=== PATIENT | female | born 1945 | race Caucasian/White ===

== ENCOUNTER 2018-05-09 11:02 | Emergency (ER) | payer MEDICARE, BC ==
--- NOTE | 2018-05-09 11:05 | UC ---
Abdominal Pain Female HPI - HPI Summary HPI Summary: 73 yo female presents with severe abdominal pain. She tells me that 5 days ago she had an episode of loose stools and mild abdominal cramping. The next day her pain was more generalized and she did not have a BM. Since that time her pain has increased to severe 10/10 and she has not had a bowel movement in 4 days. She is also nauseous and has not eaten anything today because she feels that she will vomit. She has not taken anything OTC. Denies fever, chills, recent illness, SOB, chest pain, dysuria, hematuria, vaginal bleeding/discharge. - History of Current Complaint Stated Complaint: ABDOMINAL PAIN Time Seen by Provider: 05/09/18 11:05 Hx Obtained From: Patient Severity Initially: Moderate Severity Currently: Severe Pain Intensity: 10 Pain Scale Used: 0-10 Numeric Location: Diffuse Allergies/Adverse Reactions: Allergies Allergy/AdvReac Type Severity Reaction Status Date / Time levofloxacin [From Levaquin] Allergy Unknown Rash Verified 05/09/18 11:07 MS Penicillins [Penicillins] Allergy Rash Verified 05/09/18 11:07 MS Sulfa Antibiotics Allergy Rash Verified 05/09/18 11:07 [Sulfa Antibiotics] PMH/Surg Hx/FS Hx/Imm Hx Endocrine History: Dyslipidemia Cardiovascular History: Cardiac Disease, Hypertension, Atrial Fibrillation - Surgical History Surgical History: Yes Surgery Procedure, Year, and Place: hysterectomy;. bladder repair (STITCH);. TENDON REPAIR RIGHT FOOT; - Family History Known Family History: Positive: None - Social History Occupation: Retired Lives: With Family Alcohol Use: None Substance Use Type: None Smoking Status (MU): Never Smoked Tobacco - Immunization History Most Recent Influenza Vaccination: Not the 2016/2016 Season Review of Systems Constitutional: Negative Skin: Negative Eyes: Negative ENT: Negative Respiratory: Negative Cardiovascular: Negative Gastrointestinal: Abdominal Pain Genitourinary: Negative Neurovascular: Negative Neurological: Negative Psychological: Negative All Other Systems Reviewed And Are Negative: Yes Physical Exam - Summary Physical Exam Summary: GENERAL: NAD. WDWN. Moderate pain distress SKIN: No rashes, sores, lesions, or open wounds. NECK: Supple. Nontender. No lymphadenopathy. CHEST: CTAB. No r/r/w. No accessory muscle use. Breathing comfortably and in no distress. CV: Pulses intact. Cap refill <2seconds ABDOMEN: Severe TTP lower abdomen. Moderate TTP generalized. Mild distension. Soft. No guarding. Bowel sounds present NEURO: Alert. PSYCH: Age appropriate behavior. Triage Information Reviewed: Yes Vital Signs: Vital Signs: Temp Pulse Resp BP Pulse Ox 99.1 F 116 20 122/65 97 05/09/18 11:48 05/09/18 11:48 05/09/18 11:48 05/09/18 11:48 05/09/18 11:48 Vital Signs Reviewed: Yes Abd Pain Female Course/Dx - Course Course Of Treatment: I believe the pt requires advanced imaging and labwork that are beyond the capabilities of urgent care, thus I have advised her to be further evaluated in the ED. She was agreeable to this and will be transferred via ambulance. Zofran, morphine, and NS were ordered - but EMS arrived before a line could be started and pt was transferred before medications were administered. Report called to [facility] ED - Differential Dx/Diagnosis Provider Diagnoses: Diffuse abdominal pain Discharge - Sign-Out/Discharge Documenting (check all that apply): Patient Departure All imaging exams completed and their final reports reviewed: No Studies - Discharge Plan Condition: Stable Disposition: TRANS HIGHER LVL OF CARE FAC Referrals: Tsering Rodriguez MD [Primary Care Provider] - - Billing Disposition and Condition Condition: STABLE Disposition: Trans Higher Lvl of Care Fac - Attestation Statements Provider Attestation: I was available for consult. This patient was seen by the ERIC. The patient was not presented to, seen by, or examined by me. -Ricco
[2018-05-09] MEDS ORDERED: NS 0.9% 1000 ML* 1,000 ML IV ONE (11:18)
[2018-05-09] MEDS ORDERED: Ondansetron INJ* 2 MG/ML VIAL IV ONE (11:18)
[2018-05-09] MEDS ORDERED: Morphine VIAL* 10 MG/ML 1 ML VIAL IV ONE (11:19)
[2018-05-09 11:49] VITALS: BP 122/65
== END 2018-05-09 11:26 | disposition short-term general hospital (02) ==
LOC: UCCORT 11:02
DX: R10.84 Generalized abdominal pain (principal); Z88.0 Allergy status to penicillin; Z88.1 Allergy status to other antibiotic agents
CPT/HCPCS: 99213; G0463